=== PATIENT | female | born 1990 | race Caucasian/White ===

== ENCOUNTER → 2018-03-02 | Outpatient (CLI) | payer BC | LOC: FIMAGING 14:45 | PROVIDERS: ATTEND Midwife | DX: Z30.431 Encounter for routine checking of intrauterine contraceptive device (principal) ==

== ENCOUNTER 2018-03-24 | Emergency (ER) | payer BC | END 2018-03-24 14:04 | disposition home or self-care (01) | PROC: 0UPD7HZ Removal of Contraceptive Device from Uterus and Cervix, Via Natural or Artificial Opening (ICD-10-PCS; principal; 2018-03-24) | DX: Z30.432 Encounter for removal of intrauterine contraceptive device (principal) ==